=== PATIENT | male | born 1990 | race Caucasian/White ===

== ENCOUNTER 2016-11-28 23:10 | Emergency (ER) | payer MEDICAID ==
[~2016-11-28] VITALS: Ht 172.7 cm; Wt 53.5 kg
[2016-11-29] MEDS ORDERED: LORAZEPAM 1MG TABLET PO ONE (03:15)
[2016-11-29 03:48] LABS: BASOPHILS % 0.6 % (0.0-2.0); EOSINOPHILS % 2.8 % (0.0-5.0); HEMOGLOBIN. 13.2 g/dL (14.0-18.0); LYMPHOCYTES % 26.7 % (20.0-50.0); MEAN CORPUSCULAR HEMOGLOBIN 29.5 pg (28.0-32.0); MEAN CORPUSCULAR VOLUME 87.2 fL (80.0-94.0); MEAN PLATELET VOLUME 7.7 fl (7.4-10.4); NEUTROPHILS % 63.9 % (40.0-76.0); PLATELET 272 x1000/uL (130-400); RED BLOOD CELL COUNT 4.47 mill/uL (4.7-6.1); RED CELL DISTRIBUTION WIDTH 12.4 % (11.6-14.6)
[2016-11-29 03:54] LABS: CARBON DIOXIDE 26 mEq/L (21-32); CHLORIDE 104 mEq/L (98-107); ETHANOL BLOOD < 10 mg/dL
[2016-11-29 03:57] LABS: CLARITY URINE CLEAR (CLEAR); COLOR URINE YELLOW (YELLOW); GLUCOSE URINE NEGATIVE (NEGATIVE); KETONES URINE NEGATIVE (NEGATIVE); LEUKOCYTE ESTERASE URINE NEGATIVE (NEGATIVE); NITRITE URINE NEGATIVE (NEGATIVE); OCCULT BLOOD URINE NEGATIVE (NEGATIVE); PH URINE 5.5 (4.5-8.0); PROTEIN URINE NEGATIVE (NEGATIVE); UROBILINOGEN URINE 0.2 E.U./dL (0.2-1.0)
[2016-11-29 04:13] LABS: *AMPHETAMINES SCREEN URINE PRESUMTIVE POSITIVE (NEGATIVE); *BARBITURATES SCREEN URINE NEGATIVE (NEGATIVE); *BENZODIAZEPINES SCREEN URINE NEGATIVE (NEGATIVE); *COCAINE SCREEN URINE NEGATIVE (NEGATIVE); CANNABINOID URINE SCREEN NEGATIVE (NEGATIVE); METHADONE URINE SCREEN NEGATIVE (NEGATIVE); PHENCYCLIDINE URINE SCREEN NEGATIVE (NEGATIVE)
[2016-11-29 04:15] LABS: OPIATES URINE SCREEN NEGATIVE (NEGATIVE)
[2016-11-29 10:38] VITALS: BP 140/81
== END 2016-11-29 10:39 | disposition home or self-care (01) ==
LOC: ER 23:13
DX: Z00.8 Encounter for other general examination (principal)
CPT/HCPCS: 36415; 80053; 80305; 81003; 85025; 99284; G0482